=== PATIENT | male | born 1965 | race Asian ===

== ENCOUNTER 2017-05-25 20:06 | Emergency (ER) | payer MEDICAID ==
[~2017-05-25] VITALS: Ht 180.3 cm; Wt 74.8 kg
[~2017-05-25 20:06] MED LIST: GEMF600T3; HYDR-1421; LISI10TA6; MES400T; METO25TA3
[2017-05-25 21:04] LABS: Basophils # (auto) 0.1 uL; Basophils % (auto) 0.8 % (0.0-2.0); Eosinophils # (auto) 0.1 uL; Eosinophils % (auto) 0.8 % (0.0-7.0); Hematocrit 43.1 % (41.0-53.0); Hemoglobin 14.9 g/dL (13.5-17.5); Lymphocytes # (auto) 2.1 uL; Mean Corpuscular Hemoglobin 31.2 pg (28.0-32.0); Mean Corpuscular Hgb Conc. 34.6 g/dL (32.0-36.0); Mean Corpuscular Volume 90.1 fL (80.0-100.0); Monocytes # (auto) 0.7 uL; Neutrophils # (auto) 4.4 uL; Neutrophils % (auto) 60.4 % (37.0-80.0); Nucleated Red Blood Cells % 0.3 %; Platelet Count (auto) 248 10^3/uL (140-450); Red Blood Cells 4.79 10^6/uL (4.5-5.90); Red Cell Distribution Width 13.1 % (11.8-14.3); White Blood Cell 7.4 10^3/uL (4.4-10.8)
[2017-05-25 21:19] LABS: Alanine Aminotransferase 35 U/L (16-61); Albumin 3.9 g/dL (3.4-5.0); Anion Gap 8 (5-15); Aspartate Aminotransferase 22 U/L (15-37); BUN/Creatinine Ratio 14.3; Blood Urea Nitrogen 15 mg/dL (7-18); Calcium 8.8 mg/dL (8.5-10.1); Carbon Dioxide 24 mmol/L (21-32); Chloride 109 mmol/L (98-107); GFR African American 96 mL/min; GFR Non-African American 79 mL/min; Glucose 107 mg/dL (74-106); Potassium 3.9 mmol/L (3.5-5.1); Sodium 141 mmol/L (136-145)
[2017-05-25 21:24] LABS: Alkaline Phosphatase 52 U/L (45-117); Bilirubin, Total 0.7 mg/dL (0.2-1.0); Total Protein 7.9 g/dL (6.4-8.2)
[2017-05-25 21:26] VITALS: BP 145/87
== END 2017-05-26 02:26 | disposition left against medical advice (07) ==
LOC: EDBD 20:06 → ER 20:16
DX: R07.9 Chest pain, unspecified (principal); Z53.21 Procedure and treatment not carried out due to patient leaving prior to being seen by health care provider
CPT/HCPCS: 36415; 71045; 80053; 84484; 85025; 93005

== ENCOUNTER 2019-06-16 04:11 | Emergency (ER) | payer MEDICAID ==
[~2019-06-16] VITALS: Ht 208.3 cm; Wt 79.8 kg
[~2019-06-16 04:11] MED LIST changes: -GEMF600T3; +GEMF600T7; +LISI-648; -LISI10TA6; -METO25TA3; +METO25TA36
[2019-06-16 04:47] VITALS: BP 144/80
[2019-06-16] MEDS ORDERED: TETANUS-DIPTH-ACEL PERTUSSIS 0.5ML SYR Tdap IM ONE (07:00)
== END 2019-06-16 07:16 | disposition home or self-care (01) ==
LOC: ER 04:11
DX: S91.332A Puncture wound without foreign body, left foot, initial encounter (principal); I10 Essential (primary) hypertension; Z90.49 Acquired absence of other specified parts of digestive tract; W45.0XXA Nail entering through skin, initial encounter; Y93.89 Activity, other specified; Y92.89 Other specified places as the place of occurrence of the external cause; Y99.8 Other external cause status
CPT/HCPCS: 90471; 90715

== ENCOUNTER → 2020-02-23 | Outpatient (CLI) | payer MEDICAID | END | disposition home or self-care (01) | LOC: LAB 15:40 | PROVIDERS: ATTEND Nurse Practitioner Family | DX: U07.1 COVID-19 (principal) ==

== ENCOUNTER 2020-03-07 06:14 | Inpatient (IN) | payer MEDICAID ==
[~2020-03-07] VITALS: Ht 175.3 cm; Wt 76.8 kg
[2020-03-07] VITALS (7 sets, daily range): BP systolic 102–120; BP diastolic 71–83
[2020-03-07] MEDS ORDERED: ETOMIDATE (2MG/ML) 20ML VIAL IV ONE (06:26)
[2020-03-07] MEDS ORDERED: MORPHINE SULFATE 4 MG/ML SYR/VIAL ONE ×2 (06:27→07:00)
[2020-03-07] MEDS ORDERED: ONDANSETRON HCL 4 MG/2 ML VIAL ONE (06:27)
[2020-03-07] MEDS ORDERED: DOPamine 1600MCG/ML D5W 250 ML IV ONE ×2 (06:30→06:35)
[2020-03-07] MEDS ORDERED: HEPARIN SODIUM (PORCINE) 5000 UNITS/ML 1ML VIAL ONE ×2 (06:34→07:41)
[2020-03-07] MEDS ORDERED: methylPREDNISolone SOD SUCC 125 MG/2 ML VL ONE (06:48)
[2020-03-07] MEDS ORDERED: diphenhdrAMINE HCL 50 MG/1 ML VL ONE (06:49)
[2020-03-07] MEDS ORDERED: fentaNYL CITRATE 100 MCG/2 ML VL ONE (06:49)
[2020-03-07] MEDS ORDERED: SODIUM CHL 0.9% 50 ML ONE (06:49)
[2020-03-07] MEDS ORDERED: MIDAZOLAM HCL 1MG/1ML-2 ML VIAL ONE (06:49)
[2020-03-07] MEDS ORDERED: ANGIOMAX 250 MG VIAL IV ONE (06:49)
[2020-03-07] MEDS ORDERED: IOHEXOL 350 MG/ML 100ML IJ ONE (06:50)
[2020-03-07] MEDS ORDERED: FAMOTIDINE (10MG/ML) 2ML VL IV ONE (06:50)
[2020-03-07] MEDS ORDERED: LIDOCAINE 2%HCL (LOCAL ANESTH.) INJ 20ML MDV ONE (06:50)
[2020-03-07] MEDS ORDERED: HEPARIN SODIUM (PORCINE) 5000 UNITS/ML 1ML VIAL IV ONE (07:00)
[2020-03-07] MEDS: DOPamine 1600MCG/ML D5W 250 ML IV SCH (07:00)
[2020-03-07] MEDS ORDERED: SODIUM CHLORIDE 0.9% 500 ML IV ONE (07:00)
[2020-03-07] MEDS ORDERED: ASPirin 325 MG TAB PO ONE (07:00)
[2020-03-07] MEDS ORDERED: HEPARIN 1,000 UNITS/ml 1ML VIAL IV ONE (07:15)
[2020-03-07] MEDS ORDERED: EPTIFIBATIDE INJ (2MG/ML) 10ML VIAL IV ONE ×2 (07:43→07:45)
[2020-03-07] MEDS ORDERED: EPTIFIBATIDE DRIP(0.75MG/ML) 100 ML IV ONE (07:43)
[2020-03-07] MEDS ORDERED: PHENYLEPHRINE HCL 10 MG/ML VL ONE (07:57)
[2020-03-07] MEDS ORDERED: CLOPIDOGREL 300 MG TAB ONE (08:04)
[2020-03-07 08:29] LABS: Basophils % (auto) 0.5 % (0.0-2.0); Eosinophils # (auto) 0.1 10 ^3/uL (0-0.8); Hemoglobin 13.7 g/dL (13.5-17.5); Monocytes # (auto) 1.1 10 ^3/uL (0-1.3); Red Cell Distribution Width 13.3 % (11.8-14.3)
[2020-03-07 08:31] LABS: Basophils # (auto) 0 10 ^3/uL (0-0.2); Eosinophils % (auto) 1.3 % (0.0-7.0); Lymphocytes % (auto) 20.7 % (10.0-50.0); Mean Corpuscular Hgb Conc. 35.1 g/dL (32.0-36.0); Mean Corpuscular Volume 85.5 fL (80.0-100.0); Monocytes % (auto) 11.9 % (0.0-12.0); Neutrophils # (auto) 6.3 10 ^3/uL (1.6-8.6); Neutrophils % (auto) 65.6 % (37.0-80.0); Red Blood Cells 4.56 10^6/uL (4.5-5.90); White Blood Cell 9.5 10^3/uL (4.4-10.8)
[2020-03-07 08:38] LABS: INR 1.13 (0.9-1.15); Partial Thromboplastin Time 24.8 sec (23.0-31.2)
[2020-03-07 08:41] LABS: Chloride 104 mmol/L (98-107); Potassium 3.2 mmol/L (3.5-5.1); Sodium 134 mmol/L (136-145)
[2020-03-07 08:48] LABS: Alanine Aminotransferase 29 U/L (16-61); Albumin 2.6 g/dL (3.4-5.0); Alkaline Phosphatase 50 U/L (45-117); Anion Gap 9 (5-15); Aspartate Aminotransferase 25 U/L (15-37); BUN/Creatinine Ratio 15.5; Bilirubin, Total 0.6 mg/dL (0.2-1.0); Blood Urea Nitrogen 13 mg/dL (7-18); Calcium 8.3 mg/dL (8.5-10.1); Carbon Dioxide 21 mmol/L (21-32); Cholesterol 96 mg/dL (< 200); GFR African American 123 mL/min; GFR Non-African American 102 mL/min; Glucose 169 mg/dL (74-106); HDL Cholesterol 20 mg/dL (40-59); LDL Cholesterol 48 mg/dL (< 100); Magnesium 2.4 mg/dL (1.6-2.6); Total Protein 7.6 g/dL (6.4-8.2); Triglycerides 269 mg/dL (< 150)
[2020-03-07 09:19] LABS: Platelet Count (auto) 508 10^3/uL (140-450)
[2020-03-07] MEDS: LISINOPRIL 5 MG TAB PO SCH (10:00)
[2020-03-07] MEDS: METOPROLOL TARTRATE 25 MG TAB PO SCH ×2 (10:00→23:00)
[2020-03-07] MEDS: CLOPIDOGREL BISULFATE 75 MG TAB PO SCH (10:00)
[2020-03-07] MEDS: ASPirin 81 mg TAB PO SCH (10:00)
[2020-03-07] MEDS: SODIUM CHLOR 0.9% PF (SALINE LOCK) 10ML VIAL/SYR IV SCH ×2 (14:28→23:01)
[2020-03-07] MEDS: MEPERIDINE HCL (25 MG/ML) 1ML VIAL IV PRN ×3 (16:36→22:30)
[2020-03-07] MEDS: ATORVASTATIN 20 MG TAB PO SCH (23:01)
[2020-03-08] VITALS: BP 118/73
[2020-03-08] MEDS: MEPERIDINE HCL (25 MG/ML) 1ML VIAL IV PRN ×8 (01:31→21:01)
[2020-03-08] MEDS: SODIUM CHLOR 0.9% PF (SALINE LOCK) 10ML VIAL/SYR IV SCH ×3 (05:51→21:00)
[2020-03-08 08:00] VITALS: BP 94/63
[2020-03-08] MEDS: METOPROLOL TARTRATE 25 MG TAB PO SCH ×2 (10:00→21:00)
[2020-03-08] MEDS: LISINOPRIL 5 MG TAB PO SCH (10:00)
[2020-03-08] MEDS: ASPirin 81 mg TAB PO SCH ×2 (10:00→10:25)
[2020-03-08] MEDS: DOPamine 1600MCG/ML D5W 250 ML IV SCH ×2 (10:25→15:32)
[2020-03-08] MEDS: CLOPIDOGREL BISULFATE 75 MG TAB PO SCH (10:26)
[2020-03-08 12:02] LABS: BUN/Creatinine Ratio 19.2; Calcium 8.4 mg/dL (8.5-10.1); Potassium 3.8 mmol/L (3.5-5.1)
[2020-03-08] MEDS ORDERED: REMDESIVIR PER PHARMACY 0 ML IV SCH (13:30)
[2020-03-08 16:00] VITALS: BP 94/65
[2020-03-08] MEDS ORDERED: REMDESIVIR 200 MG in NS 210ml LOADING DOSE ADULT IV ONE (17:00)
[2020-03-08] MEDS: ALBUTEROL SULF HFA 90MCG INH 200DOSE IN PRN (18:31)
[2020-03-08] MEDS: BUDESONIDE (INHALATION) 180 MCG IH IN SCH (18:31)
[2020-03-08] MEDS: ASCORBIC ACID 500 MG TAB PO SCH (21:00)
[2020-03-08] MEDS: ATORVASTATIN 20 MG TAB PO SCH (21:01)
[2020-03-09] VITALS: BP 91/60
[2020-03-09] MEDS: MEPERIDINE HCL (25 MG/ML) 1ML VIAL IV PRN ×4 (01:01→09:20)
[2020-03-09] MEDS: SODIUM CHLOR 0.9% PF (SALINE LOCK) 10ML VIAL/SYR IV SCH ×3 (05:54→21:46)
[2020-03-09 06:37] LABS: Basophils # (auto) 0 10 ^3/uL (0-0.2); Basophils % (auto) 0.3 % (0.0-2.0); Eosinophils # (auto) 0.1 10 ^3/uL (0-0.8); Eosinophils % (auto) 0.9 % (0.0-7.0); Hemoglobin 13.4 g/dL (13.5-17.5); Lymphocytes # (auto) 1.3 10 ^3/uL (0.4-5.4); Lymphocytes % (auto) 15.2 % (10.0-50.0); Mean Corpuscular Hemoglobin 29.9 pg (28.0-32.0); Mean Corpuscular Hgb Conc. 34.3 g/dL (32.0-36.0); Mean Corpuscular Volume 87.4 fL (80.0-100.0); Monocytes # (auto) 0.9 10 ^3/uL (0-1.3); Monocytes % (auto) 10.8 % (0.0-12.0); Neutrophils % (auto) 72.8 % (37.0-80.0); Platelet Count (auto) 416 10^3/uL (140-450); Red Blood Cells 4.47 10^6/uL (4.5-5.90); Red Cell Distribution Width 13.4 % (11.8-14.3); White Blood Cell 8.2 10^3/uL (4.4-10.8)
[2020-03-09 07:07] LABS: Potassium 3.6 mmol/L (3.5-5.1)
[2020-03-09 07:20] LABS: Albumin 2.4 g/dL (3.4-5.0); BUN/Creatinine Ratio 24.6; Bilirubin, Total 0.6 mg/dL (0.2-1.0); Magnesium 2.3 mg/dL (1.6-2.6); Total Protein 6.8 g/dL (6.4-8.2)
[2020-03-09] MEDS: BUDESONIDE (INHALATION) 180 MCG IH IN SCH ×2 (07:29→19:39)
[2020-03-09] MEDS: ALBUTEROL SULF HFA 90MCG INH 200DOSE IN PRN ×2 (07:29→19:39)
[2020-03-09] MEDS: DOPamine 1600MCG/ML D5W 250 ML IV SCH (07:48)
[2020-03-09 08:00] VITALS: BP 95/59
[2020-03-09] MEDS: DexAMETHasone SOD PHOS 10MG/1ML VIAL INJ IV SCH (09:20)
[2020-03-09] MEDS: CLOPIDOGREL BISULFATE 75 MG TAB PO SCH (09:20)
[2020-03-09] MEDS: ASPirin 81 mg TAB PO SCH ×2 (09:20→10:00)
[2020-03-09] MEDS: CHOLECALCIFEROL (VITD3) 2,000 UNIT CAP PO SCH (09:21)
[2020-03-09] MEDS: METOPROLOL TARTRATE 25 MG TAB PO SCH ×2 (09:21→21:47)
[2020-03-09] MEDS: ASCORBIC ACID 500 MG TAB PO SCH ×2 (09:21→21:47)
[2020-03-09] MEDS: ZINC SULFATE 220mg CAP or TAB PO SCH (09:21)
[2020-03-09] MEDS: LISINOPRIL 5 MG TAB PO SCH (10:00)
[2020-03-09] MEDS: DOXYCYCLINE 100MG/250ML 250 ML IV SCH ×2 (11:33→23:00)
[2020-03-09] MEDS: MORPHINE SULF INJ 2 MG/ML SYRINGE 1ML IV PRN ×3 (12:39→21:46)
[2020-03-09] MEDS ORDERED: REMDESIVIR 100mg 100 MG in SODIUM CHL 0.9% 230 ML IV SCH (15:00)
[2020-03-09 15:59] VITALS: BP 96/60
[2020-03-09] MEDS: ATORVASTATIN 20 MG TAB PO SCH (21:46)
[2020-03-10] VITALS (7 sets, daily range): BP systolic 102–113; BP diastolic 48–75
[2020-03-10] MEDS: MORPHINE SULF INJ 2 MG/ML SYRINGE 1ML IV PRN ×5 (01:48→21:07)
[2020-03-10] MEDS: DOPamine 1600MCG/ML D5W 250 ML IV SCH ×2 (03:00→18:46)
[2020-03-10] MEDS: SODIUM CHLOR 0.9% PF (SALINE LOCK) 10ML VIAL/SYR IV SCH ×3 (05:51→21:04)
[2020-03-10] MEDS: ALBUTEROL SULF HFA 90MCG INH 200DOSE IN PRN ×2 (06:05→20:04)
[2020-03-10] MEDS: BUDESONIDE (INHALATION) 180 MCG IH IN SCH ×2 (06:05→20:04)
[2020-03-10 08:10] LABS: Albumin 2.5 g/dL (3.4-5.0); Calcium 7.8 mg/dL (8.5-10.1); Potassium 3.7 mmol/L (3.5-5.1)
[2020-03-10 08:16] LABS: BUN/Creatinine Ratio 21.5; Bilirubin, Total 0.5 mg/dL (0.2-1.0); Total Protein 6.9 g/dL (6.4-8.2)
[2020-03-10] MEDS: DexAMETHasone SOD PHOS 10MG/1ML VIAL INJ IV SCH (09:47)
[2020-03-10] MEDS: ASPirin 81 mg TAB PO SCH ×2 (09:47)
[2020-03-10] MEDS: ZINC SULFATE 220mg CAP or TAB PO SCH (09:47)
[2020-03-10] MEDS: CLOPIDOGREL BISULFATE 75 MG TAB PO SCH (09:48)
[2020-03-10] MEDS: CHOLECALCIFEROL (VITD3) 2,000 UNIT CAP PO SCH (09:48)
[2020-03-10] MEDS: ASCORBIC ACID 500 MG TAB PO SCH ×2 (09:48→21:06)
[2020-03-10] MEDS: METOPROLOL TARTRATE 25 MG TAB PO SCH ×2 (09:48→21:06)
[2020-03-10] MEDS: LISINOPRIL 5 MG TAB PO SCH (09:49)
[2020-03-10] MEDS ORDERED: HYDROcodone-ACET 10/325MG TAB PO PRN (10:30)
[2020-03-10] MEDS ORDERED: RANOLAZINE ER 500 MG TAB PO ONE (11:45)
[2020-03-10] MEDS: KETOROLAC TROMETH 30 MG/ML 1ML VIAL IV PRN (12:50)
[2020-03-10] MEDS: ATORVASTATIN 20 MG TAB PO SCH (21:04)
[2020-03-10] MEDS: RANOLAZINE ER 500 MG TAB PO SCH (21:06)
[2020-03-11] VITALS: BP 117/69
[2020-03-11] MEDS: MORPHINE SULF INJ 2 MG/ML SYRINGE 1ML IV PRN ×2 (01:20→05:38)
[2020-03-11] MEDS: SODIUM CHLOR 0.9% PF (SALINE LOCK) 10ML VIAL/SYR IV SCH ×3 (05:39→22:42)
[2020-03-11] MEDS: BUDESONIDE (INHALATION) 180 MCG IH IN SCH ×2 (07:24→22:00)
[2020-03-11] MEDS: ALBUTEROL SULF HFA 90MCG INH 200DOSE IN PRN ×2 (07:24→22:37)
[2020-03-11 07:30] LABS: Albumin 2.5 g/dL (3.4-5.0); Calcium 7.7 mg/dL (8.5-10.1); Potassium 3.9 mmol/L (3.5-5.1)
[2020-03-11 07:34] LABS: BUN/Creatinine Ratio 15.6; Bilirubin, Total 0.3 mg/dL (0.2-1.0); Total Protein 6.7 g/dL (6.4-8.2)
[2020-03-11 08:00] VITALS: BP 96/67
[2020-03-11] MEDS: ASPirin 81 mg TAB PO SCH (09:12)
[2020-03-11] MEDS: ZINC SULFATE 220mg CAP or TAB PO SCH (09:12)
[2020-03-11] MEDS: METOPROLOL TARTRATE 25 MG TAB PO SCH ×2 (09:12→22:42)
[2020-03-11] MEDS: ASCORBIC ACID 500 MG TAB PO SCH ×2 (09:13→22:43)
[2020-03-11] MEDS: CLOPIDOGREL BISULFATE 75 MG TAB PO SCH (09:13)
[2020-03-11] MEDS: CHOLECALCIFEROL (VITD3) 2,000 UNIT CAP PO SCH (09:13)
[2020-03-11] MEDS: RANOLAZINE ER 500 MG TAB PO SCH ×2 (09:13→22:43)
[2020-03-11] MEDS: LISINOPRIL 5 MG TAB PO SCH (09:13)
[2020-03-11] MEDS: KETOROLAC TROMETH 30 MG/ML 1ML VIAL IV PRN ×3 (09:14→23:49)
[2020-03-11 16:00] VITALS: BP 98/57
[2020-03-11] MEDS: ATORVASTATIN 20 MG TAB PO SCH (22:42)
[2020-03-12] VITALS: BP 116/65
[2020-03-12] MEDS: MORPHINE SULF INJ 2 MG/ML SYRINGE 1ML IV PRN (05:21)
[2020-03-12] MEDS: SODIUM CHLOR 0.9% PF (SALINE LOCK) 10ML VIAL/SYR IV SCH (05:45)
[2020-03-12 06:56] LABS: Potassium 3.9 mmol/L (3.5-5.1)
[2020-03-12 07:14] LABS: Albumin 2.4 g/dL (3.4-5.0); Bilirubin, Total 0.4 mg/dL (0.2-1.0); Calcium 8.2 mg/dL (8.5-10.1); Total Protein 6.1 g/dL (6.4-8.2)
[2020-03-12] MEDS: ALBUTEROL SULF HFA 90MCG INH 200DOSE IN PRN (07:35)
[2020-03-12] MEDS: BUDESONIDE (INHALATION) 180 MCG IH IN SCH (07:35)
[2020-03-12 08:06] VITALS: BP 106/70
[2020-03-12] MEDS: ASPirin 81 mg TAB PO SCH (09:43)
[2020-03-12] MEDS: ZINC SULFATE 220mg CAP or TAB PO SCH (09:44)
[2020-03-12] MEDS: METOPROLOL TARTRATE 25 MG TAB PO SCH (09:45)
[2020-03-12] MEDS: CLOPIDOGREL BISULFATE 75 MG TAB PO SCH (09:46)
[2020-03-12] MEDS: RANOLAZINE ER 500 MG TAB PO SCH (09:46)
[2020-03-12] MEDS: LISINOPRIL 5 MG TAB PO SCH (09:47)
[2020-03-12] MEDS: ASCORBIC ACID 500 MG TAB PO SCH (09:47)
[2020-03-12] MEDS: CHOLECALCIFEROL (VITD3) 2,000 UNIT CAP PO SCH (09:47)
[2020-03-12 12:31] VITALS: BP 106/70
== END 2020-03-12 13:40 | disposition home or self-care (01) | DRG 174 ==
LOC: EDBD 06:14 → EDSEX 06:14 → ER 06:14 → CATH 06:15 → CENTRAL 09:04 → TELE-WESTW 15:08
PROVIDERS: ADMIT Internal Medicine; ATTEND Internal Medicine
PROC: B2111ZZ Fluoroscopy of Multiple Coronary Arteries using Low Osmolar Contrast (ICD-10-PCS; principal; 2020-03-07)
PROC: 4A023N7 Measurement of Cardiac Sampling and Pressure, Left Heart, Percutaneous Approach (ICD-10-PCS; 2020-03-07)
PROC: B2151ZZ Fluoroscopy of Left Heart using Low Osmolar Contrast (ICD-10-PCS; 2020-03-07)
PROC: 027035Z Dilation of Coronary Artery, One Artery with Two Drug-eluting Intraluminal Devices, Percutaneous Approach (ICD-10-PCS; 2020-03-07)
PROC: XW033E5 Introduction of Remdesivir Anti-infective into Peripheral Vein, Percutaneous Approach, New Technology Group 5 (ICD-10-PCS; 2020-03-08)
PROC: XW13325 Transfusion of Convalescent Plasma (Nonautologous) into Peripheral Vein, Percutaneous Approach, New Technology Group 5 (ICD-10-PCS; 2020-03-10)
DX: I21.11 ST elevation (STEMI) myocardial infarction involving right coronary artery (principal); U07.1 COVID-19; J12.82 Pneumonia due to coronavirus disease 2019; J96.01 Acute respiratory failure with hypoxia; E87.6 Hypokalemia; E88.09 Other disorders of plasma-protein metabolism, not elsewhere classified; E11.9 Type 2 diabetes mellitus without complications; I10 Essential (primary) hypertension; E78.1 Pure hyperglyceridemia; E78.5 Hyperlipidemia, unspecified; I25.119 Atherosclerotic heart disease of native coronary artery with unspecified angina pectoris; I21.19 ST elevation (STEMI) myocardial infarction involving other coronary artery of inferior wall; Z91.041 Radiographic dye allergy status; Z82.49 Family history of ischemic heart disease and other diseases of the circulatory system; Z90.49 Acquired absence of other specified parts of digestive tract
CPT/HCPCS: 36415; 71045; 72170; 80048; 80053; 80061; 82565; 83036; 83735; 84484; 85025; 85610; 85730; 86850; 86900; 86901; 87426; 92928; 93005; 93306; 93458; 94640; 99152; 99153; C1874; C1887; G0378; J1100; J1885; J2250; J2405; J3490

== ENCOUNTER 2020-05-29 20:30 | Inpatient (IN) | payer MEDICAID ==
[~2020-05-29] VITALS: Ht 180.3 cm; Wt 78.9 kg
[~2020-05-29 20:30] MED LIST changes: -GEMF600T7; -HYDR-1421; -LISI-648
[2020-05-29 21:13] LABS: Basophils # (auto) 0 10 ^3/uL (0-0.2); Basophils % (auto) 0.5 % (0.0-2.0); Eosinophils # (auto) 0 10 ^3/uL (0-0.8); Eosinophils % (auto) 0.4 % (0.0-7.0); Hematocrit 45.4 % (41.0-53.0); Hemoglobin 15.3 g/dL (13.5-17.5); Lymphocytes # (auto) 2.7 10 ^3/uL (0.4-5.4); Lymphocytes % (auto) 35.9 % (10.0-50.0); Mean Corpuscular Hemoglobin 30.2 pg (28.0-32.0); Mean Corpuscular Hgb Conc. 33.7 g/dL (32.0-36.0); Mean Corpuscular Volume 89.6 fL (80.0-100.0); Monocytes # (auto) 0.7 10 ^3/uL (0-1.3); Neutrophils # (auto) 4.1 10 ^3/uL (1.6-8.6); Neutrophils % (auto) 54.2 % (37.0-80.0); Nucleated Red Blood Cells % 0.2 %; Platelet Count (auto) 216 10^3/uL (140-450); Red Blood Cells 5.07 10^6/uL (4.5-5.90); Red Cell Distribution Width 13.7 % (11.8-14.3); White Blood Cell 7.5 10^3/uL (4.4-10.8)
[2020-05-29 21:30] LABS: INR 1.13 (0.9-1.15); Partial Thromboplastin Time 25.1 sec (23.0-31.2)
[2020-05-29 21:32] LABS: Albumin 4.2 g/dL (3.4-5.0); Anion Gap 10 (5-15); Blood Urea Nitrogen 12 mg/dL (7-18); Calcium 9.3 mg/dL (8.5-10.1); Carbon Dioxide 25 mmol/L (21-32); Chloride 104 mmol/L (98-107); Glucose 186 mg/dL (74-106); Magnesium 2.1 mg/dL (1.6-2.6); Potassium 3.7 mmol/L (3.5-5.1); Sodium 139 mmol/L (136-145)
[2020-05-29 21:37] LABS: Alanine Aminotransferase 53 U/L (16-61); Alkaline Phosphatase 55 U/L (45-117); Aspartate Aminotransferase 29 U/L (15-37); BUN/Creatinine Ratio 11.7; Bilirubin, Total 1.2 mg/dL (0.2-1.0); GFR African American 97 mL/min; GFR Non-African American 80 mL/min; Total Protein 8.3 g/dL (6.4-8.2)
[2020-05-29] MEDS ORDERED: ENOXAPARIN SOD 80 MG/0.8ML SYRINGE SC ONE (21:45)
[2020-05-30 00:19] LABS: Urine Amorphous Crystal FEW /hpf (None Seen); Urine Bacteria NONE SEEN /hpf (None Seen); Urine Blood Negative /uL (Negative); Urine WBC 1 /hpf (0 - 3)
[2020-05-30 00:21] LABS: Amphetamine Screen, Urine NEGATIVE (NEGATIVE); Barbiturate Scree,Urine NEGATIVE (NEGATIVE); Benzodiazephine Screen, Urine NEGATIVE (NEGATIVE); Cannabinoid Screen, Urine NEGATIVE (NEGATIVE); Cocaine Screen, Urine NEGATIVE (NEGATIVE); Opiate Scree,Urine NEGATIVE (NEGATIVE); Phencyclidine Screen, Urine NEGATIVE (NEGATIVE)
[2020-05-30] MEDS ORDERED: HYDROcodone-ACET 5/325MG TAB PO PRN (02:00)
[2020-05-30] MEDS ORDERED: MORPHINE SULF INJ 2 MG/ML SYRINGE 1ML IV PRN ×2 (02:00)
[2020-05-30] MEDS ORDERED: ONDANSETRON HCL 4 MG/2 ML VIAL IV PRN (02:00)
[2020-05-30] MEDS ORDERED: NITROGLYCERIN 0.4 MG SL TAB SL PRN ×2 (02:00)
[2020-05-30 06:00] VITALS: BP 117/83
[2020-05-30] MEDS ORDERED: LOSA-69 PO (06:23)
[2020-05-30] MEDS ORDERED: NITR0.4S29 SL (06:23)
[2020-05-30] MEDS ORDERED: RANO500T2 PO (06:23)
[2020-05-30] MEDS ORDERED: ATOR40TA52 PO (06:23)
[2020-05-30] MEDS ORDERED: ASPI-543 PO (06:23)
[2020-05-30] MEDS ORDERED: CLOP75TA70 PO (06:23)
[2020-05-30 09:00] VITALS: BP 117/84
[2020-05-30] MEDS ORDERED: CLOPIDOGREL BISULFATE 75 MG TAB PO SCH (10:00)
[2020-05-30] MEDS ORDERED: ASPirin 81 mg TAB PO SCH (10:00)
[2020-05-30] MEDS ORDERED: LOSARTAN POTASSIUM 50 MG TAB PO SCH (10:00)
[2020-05-30] MEDS ORDERED: RANOLAZINE ER 500 MG TAB PO SCH (10:00)
[2020-05-30 13:00] VITALS: BP 122/82
[2020-05-30 13:24] LABS: Albumin 3.7 g/dL (3.4-5.0); Calcium 9.3 mg/dL (8.5-10.1); Potassium 3.8 mmol/L (3.5-5.1)
[2020-05-30 13:27] LABS: BUN/Creatinine Ratio 15.5; Bilirubin, Total 1.3 mg/dL (0.2-1.0); Total Protein 7.3 g/dL (6.4-8.2)
[2020-05-30 17:00] VITALS: BP 129/82
[2020-05-30 17:26] VITALS: BP 155/84
[2020-05-30] MEDS ORDERED: ATORVASTATIN 20 MG TAB PO SCH (22:00)
== END 2020-05-30 18:10 | disposition home or self-care (01) | DRG 198 ==
LOC: ER 20:37 → TELE 05-30 02:10 → TELE-WESTW 05-30 04:30
PROVIDERS: ADMIT Internal Medicine; ATTEND Internal Medicine
DX: R07.9 Chest pain, unspecified (principal); I25.10 Atherosclerotic heart disease of native coronary artery without angina pectoris; I48.0 Paroxysmal atrial fibrillation; R42 Dizziness and giddiness; I10 Essential (primary) hypertension; Z20.822 Contact with and (suspected) exposure to COVID-19; R11.2 Nausea with vomiting, unspecified; I25.2 Old myocardial infarction; Z95.5 Presence of coronary angioplasty implant and graft; Z91.041 Radiographic dye allergy status; Z90.49 Acquired absence of other specified parts of digestive tract
CPT/HCPCS: 36415; 70450; 71045; 72125; 80053; 80307; 81001; 83605; 83735; 83880; 84443; 84484; 85025; 85379; 85610; 85730; 87040; 87086; 87426; 93005; 93306; 96372; G0378

== ENCOUNTER 2020-11-29 14:08 | Emergency (ER) | payer MEDICAID ==
[~2020-11-29] VITALS: Ht 170.2 cm; Wt 86.2 kg
[~2020-11-29 14:08] MED LIST changes: +ASPI-543 PO; +ATOR40TA52 PO; +CLOP75TA70 PO; +LOSA-69 PO; +LOSA25TA38 PO; +NITR0.4S29 SL; +RANO500T2 PO
[2020-11-29] MEDS ORDERED: SODIUM CHLORIDE 0.9% 1,000 ML IV ONE (15:00)
[2020-11-29 15:14] LABS: Basophils # (auto) 0 10 ^3/uL (0-0.2); Basophils % (auto) 0.5 % (0.0-2.0); Eosinophils # (auto) 0.1 10 ^3/uL (0-0.8); Eosinophils % (auto) 0.6 % (0.0-7.0); Hematocrit 43.6 % (41.0-53.0); Lymphocytes # (auto) 2.1 10 ^3/uL (0.4-5.4); Mean Corpuscular Hemoglobin 29.9 pg (28.0-32.0); Mean Corpuscular Hgb Conc. 34.3 g/dL (32.0-36.0); Mean Corpuscular Volume 87.1 fL (80.0-100.0); Monocytes # (auto) 0.8 10 ^3/uL (0-1.3); Monocytes % (auto) 9.4 % (0.0-12.0); Neutrophils # (auto) 5.9 10 ^3/uL (1.6-8.6); Neutrophils % (auto) 66.5 % (37.0-80.0); Nucleated Red Blood Cells % 0.1 %; Red Blood Cells 5.01 10^6/uL (4.5-5.90); Red Cell Distribution Width 13.4 % (11.8-14.3); White Blood Cell 8.9 10^3/uL (4.4-10.8)
[2020-11-29 15:24] LABS: Albumin 3.8 g/dL (3.4-5.0); Calcium 9.2 mg/dL (8.5-10.1); Potassium 4.2 mmol/L (3.5-5.1)
[2020-11-29 15:26] LABS: BUN/Creatinine Ratio 14.2; Bilirubin, Total 1.1 mg/dL (0.2-1.0); Total Protein 7.7 g/dL (6.4-8.2)
[2020-11-29 15:34] LABS: Urine Bacteria NONE SEEN /hpf (None Seen); Urine Blood Negative /uL (Negative); Urine Specific Gravity 1.017 (1.001-1.035); Urine WBC 1 /hpf (0 - 3)
[2020-11-29 17:40] VITALS: BP 137/84
== END 2020-11-29 19:20 | disposition home or self-care (01) ==
LOC: ER 14:10
DX: E11.65 Type 2 diabetes mellitus with hyperglycemia (principal); E78.5 Hyperlipidemia, unspecified; I10 Essential (primary) hypertension; Z90.49 Acquired absence of other specified parts of digestive tract; Z79.01 Long term (current) use of anticoagulants; Z79.82 Long term (current) use of aspirin; Z79.899 Other long term (current) drug therapy; Z88.8 Allergy status to other drugs, medicaments and biological substances
CPT/HCPCS: 36415; 36600; 71045; 80053; 81001; 82010; 82805; 85025; 96360; 99284; J7030

== ENCOUNTER 2021-02-12 02:39 | Emergency (ER) | payer MEDICAID ==
[~2021-02-12] VITALS: Ht 172.7 cm; Wt 81.6 kg
[2021-02-12 03:17] LABS: Basophils # (auto) 0.1 10 ^3/uL (0-0.2); Basophils % (auto) 0.9 % (0.0-2.0); Eosinophils # (auto) 0.1 10 ^3/uL (0-0.8); Eosinophils % (auto) 0.7 % (0.0-7.0); Hematocrit 39.9 % (41.0-53.0); Hemoglobin 13.4 g/dL (13.5-17.5); Lymphocytes # (auto) 2.4 10 ^3/uL (0.4-5.4); Lymphocytes % (auto) 32.1 % (10.0-50.0); Mean Corpuscular Hemoglobin 29.6 pg (28.0-32.0); Mean Corpuscular Hgb Conc. 33.5 g/dL (32.0-36.0); Mean Corpuscular Volume 88.4 fL (80.0-100.0); Monocytes # (auto) 0.8 10 ^3/uL (0-1.3); Monocytes % (auto) 11.4 % (0.0-12.0); Neutrophils # (auto) 4.1 10 ^3/uL (1.6-8.6); Neutrophils % (auto) 54.9 % (37.0-80.0); Nucleated Red Blood Cells % 0.2 %; Red Blood Cells 4.52 10^6/uL (4.5-5.90); Red Cell Distribution Width 13.2 % (11.8-14.3); White Blood Cell 7.4 10^3/uL (4.4-10.8)
[2021-02-12 03:37] LABS: INR 1.16 (0.9-1.15); Partial Thromboplastin Time 23.3 sec (23.6-33.0)
[2021-02-12 03:43] LABS: Albumin 3.4 g/dL (3.4-5.0); BUN/Creatinine Ratio 17.2; Calcium 8.8 mg/dL (8.5-10.1); Magnesium 2.1 mg/dL (1.6-2.6); Potassium 3.8 mmol/L (3.5-5.1)
[2021-02-12 03:46] LABS: Total Protein 6.8 g/dL (6.4-8.2)
[2021-02-12] MEDS ORDERED: ASPirin 81 mg TAB PO ONE (08:30)
[2021-02-12 09:20] VITALS: BP 128/76
[2021-02-12 09:46] LABS: Urine Bacteria NONE SEEN /hpf (None Seen); Urine Blood Negative /uL (Negative); Urine WBC 1 /hpf (0 - 3)
== END 2021-02-12 09:43 | disposition home or self-care (01) ==
LOC: ER 02:39 → EDBD 02:39 → ER 09:43
DX: R07.89 Other chest pain (principal); E11.9 Type 2 diabetes mellitus without complications; E78.5 Hyperlipidemia, unspecified; I10 Essential (primary) hypertension
CPT/HCPCS: 36415; 71045; 80053; 81001; 83735; 83880; 84484; 85025; 85379; 85610; 85730; 93005